=== PATIENT | male | born 2000 ===

== ENCOUNTER 2020-10-01 10:33 | Emergency (ER) | payer OTHER ==
[~2020-10-01] VITALS: Ht 167.6 cm; Wt 85.6 kg
--- NOTE | 2020-10-01 10:56 | NUR ---
PT HERE FOR C/O EPIGASTRIC PAIN X3 WEEKS, PT REPORTS PAIN HAS WORSEN, SEEN AT URGENT CARE YESTERDAY. PT AMBULATED TO BATHROOM ON STEADY GAIT.
[2020-10-01 11:26] LABS: MICROSCOPIC NOT IND
[2020-10-01] MEDS ORDERED: ONDANSETRON 2MG/ML, 2ML IVPush ONE (11:30)
[2020-10-01] MEDS ORDERED: MORPHINE SULFATE 4 MG/ML, 1ML IVPush PRN (11:30)
[2020-10-01] MEDS ORDERED: FAMOTIDINE 20 MG/2 ML IVPush ONE (11:30)
[2020-10-01 11:39] LABS: BASOPHILS % (AUTO) 1 % (0-1); EOSINOPHILS % (AUTO) 3 % (1-7); LYMPHOCYTES % (AUTO) 29 % (22-44); MEAN CORPUSCULAR HEMOGLOBIN 30.9 pg (27.5-34.5); MEAN CORPUSCULAR HGB CONC 34.7 g/dL (33.2-36.2); MEAN PLATELET VOLUME 7.6 fL (7.4-10.4); MONOCYTES % (AUTO) 6 % (2-9); NEUTROPHILS % (AUTO) 61 % (42-75); PLATELET COUNT 346 x10^3/uL (130-400); RED BLOOD COUNT 5.19 x10^6/uL (4.38-5.82); RED CELL DISTRIBUTION WIDTH 13.3 % (9.4-14.8)
[2020-10-01 11:40] LABS: MD NO
[2020-10-01 11:50] LABS: ALANINE AMINOTRANSFERASE 37 U/L (12-78); ALBUMIN 3.8 g/dL (3.4-5.0); ANION GAP 6 mmol/L (5-15); CALCIUM 8.8 mg/dL (8.5-10.1); CHLORIDE 105 mmol/L (98-107); CREATININE 0.85 mg/dL (0.7-1.3)
[2020-10-01 11:52] LABS: ALKALINE PHOSPHATASE 66 U/L (45-117); BILIRUBIN,TOTAL 0.5 mg/dL (0.2-1.0); TOTAL PROTEIN 7.8 g/dL (6.4-8.2)
[2020-10-01] MEDS ORDERED: ONDANSETRON 2MG/ML, 2ML ONE (12:26)
[2020-10-01] MEDS ORDERED: MORPHINE SULFATE 4 MG/ML, 1ML ONE (12:26)
[2020-10-01] MEDS ORDERED: FAMOTIDINE 20 MG/2 ML ONE (12:27)
[2020-10-01 12:58] VITALS: BP 120/74
== END 2020-10-01 13:00 | disposition home or self-care (01) ==
LOC: ED 10:52
DX: K29.00 Acute gastritis without bleeding (principal); R10.13 Epigastric pain
CPT/HCPCS: 36415; 76700; 80053; 81003; 83690; 85025; 99284; J2405; J2270